=== PATIENT | female | born 2000 | race Caucasian/White ===

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

== ENCOUNTER 2023-03-17 14:27 | Emergency (ER) | payer OTHER ==
[~2023-03-17] VITALS: Ht 157.5 cm; Wt 61.4 kg
[2023-03-17 15:37] LABS: BASO # 0.1 10^3/uL (0.0-0.2); BASO % 0.6 % (0.0-1.0); EOS # 0.1 10^3/uL (0.0-0.5); EOS % 0.9 % (0.0-3.0); HEMOGLOBIN 12.6 g/dl (12.0-15.5); LYMPH # 1.5 10^3/uL (1.5-5.0); LYMPH % 18.4 % (24.0-44.0); MEAN CORPUSCULAR HEMOGLOBIN 29.7 pg (27.0-33.0); MEAN CORPUSCULAR HGB CONC 33.2 g/dl (32.0-36.5); MEAN CORPUSCULAR VOLUME 89.6 fl (80.0-96.0); MONO # 0.7 10^3/uL (0.0-0.8); MONO % 8.8 % (2.0-8.0); NEUTROPHILS # 5.7 10^3/uL (1.5-8.5); NEUTROPHILS % 70.9 % (36.0-66.0); PLATELET COUNT, AUTOMATED 190 10^3/uL (150-450); RED BLOOD COUNT 4.24 10^6/uL (4.00-5.40); WHITE BLOOD COUNT 8.1 10^3/uL (4.0-10.0)
[2023-03-17 16:05] LABS: ALBUMIN 3.7 G/DL (3.2-5.2); ALKALINE PHOSPHATASE 86 U/L (46-116); ALT/SGPT 12 U/L (7.0-40); AST/SGOT 15 U/L (<34); BILIRUBIN,TOTAL 0.2 MG/DL (0.3-1.2); BLOOD UREA NITROGEN 8 MG/DL (9-23); CALCIUM LEVEL 8.8 MG/DL (8.5-10.1); CARBON DIOXIDE LEVEL 25 MMOL/L (20-31); CHLORIDE LEVEL 109 MMOL/L (98-107); CK-MB VALUE MASS < 1.0 NG/ML (<3.6); CPK CREATINE PHOSPHOKINASE 71 U/L (34-145); CREATININE FOR GFR 0.65 MG/DL (0.55-1.30); GLUCOSE, FASTING 120 MG/DL (60-100); MAGNESIUM LEVEL 1.8 MG/DL (1.8-2.4); POTASSIUM SERUM 4.1 MMOL/L (3.5-5.1); SODIUM LEVEL 141 MMOL/L (136-145); TOTAL PROTEIN 7.1 G/DL (5.7-8.2)
[2023-03-17 16:07] LABS: THYROID STIMULATING HORMONE 1.292 uIU/ML (0.48-4.17)
[2023-03-17 16:10] LABS: HCG, SERUM QUALITATIVE NEGATIVE (NEGATIVE)
[2023-03-17] MEDS ORDERED: HYDR-3363 PO (16:49)
[2023-03-17 16:55] VITALS: BP 95/59
== END 2023-03-17 17:03 | disposition home or self-care (01) ==
LOC: M ED 14:27 → EDBD 14:27 → M ED 17:03
DX: F41.1 Generalized anxiety disorder (principal); I25.2 Old myocardial infarction; F43.10 Post-traumatic stress disorder, unspecified; Z79.811 Long term (current) use of aromatase inhibitors; Z88.5 Allergy status to narcotic agent

== ENCOUNTER 2023-06-26 22:43 | Emergency (ER) | payer OTHER ==
[~2023-06-26 22:43] MED LIST: EEG; HYDR-3363 PO; KEPP1TAB PO; LEXA1TAB PO
[2023-06-26 22:58] VITALS: BP 102/66; TEMP 99; O2SAT 98
== END 2023-06-26 23:54 | disposition left against medical advice (07) ==
LOC: M ED 22:43 → EDBD 22:43 → M ED 23:54
DX: Z53.21 Procedure and treatment not carried out due to patient leaving prior to being seen by health care provider (principal)

== ENCOUNTER 2023-07-13 17:10 | Emergency (ER) | payer OTHER ==
[~2023-07-13] VITALS: Ht 160 cm; Wt 54.5 kg
[2023-07-13 17:11] VITALS: BP 121/77; TEMP 98.2; O2SAT 98
[2023-07-13] MEDS ORDERED: LORA-674 (17:19)
== END 2023-07-13 18:32 | disposition left against medical advice (07) ==
LOC: M ED 17:10
DX: Z53.21 Procedure and treatment not carried out due to patient leaving prior to being seen by health care provider (principal)

== ENCOUNTER 2023-07-24 14:17 | Emergency (ER) | payer OTHER ==
[~2023-07-24] VITALS: Ht 160 cm; Wt 56.8 kg
[~2023-07-24 14:17] MED LIST changes: +LORA-1041
[2023-07-24 14:18] VITALS: BP 108/77; TEMP 97.9; O2SAT 98
[2023-07-24] MEDS ORDERED: KETOROLAC 60MG 2ML VIAL IM ONE (19:05)
== END 2023-07-24 19:27 | disposition home or self-care (01) ==
LOC: M ED 14:17
DX: S99.912A Unspecified injury of left ankle, initial encounter (principal); S99.922A Unspecified injury of left foot, initial encounter; G40.909 Epilepsy, unspecified, not intractable, without status epilepticus; F41.9 Anxiety disorder, unspecified; W54.1XXA Struck by dog, initial encounter; Y92.410 Unspecified street and highway as the place of occurrence of the external cause; Z79.83 Long term (current) use of bisphosphonates; Z79.811 Long term (current) use of aromatase inhibitors; Z79.899 Other long term (current) drug therapy
CPT/HCPCS: 73590; 73610; 73630; 96372; 99283; J1885

== ENCOUNTER → 2023-10-25 | Outpatient (REF) | payer OTHER ==
[~2023-10-25] MED LIST changes: +KEPP1TAB2 PO
[2023-10-25 15:13] LABS: CHLAMYDIA DNA AMPLIFICATION NEGATIVE (NEGATIVE); GC DNA AMPLIFICATION NEGATIVE (NEGATIVE)
== END ==
LOC: M LAB REF 12:23
PROVIDERS: ATTEND Physician Assistant Medical
DX: Z20.2 Contact with and (suspected) exposure to infections with a predominantly sexual mode of transmission (principal)

== ENCOUNTER 2023-12-06 23:19 | Emergency (ER) | payer OTHER ==
[~2023-12-06] VITALS: Ht 160 cm; Wt 70.5 kg
[2023-12-06 23:35] VITALS: BP 132/84; TEMP 97.7; O2SAT 99
== END 2023-12-07 00:28 | disposition left against medical advice (07) ==
LOC: M ED 23:19 → EDBD 23:19 → M ED 12-07 00:28
DX: Z53.21 Procedure and treatment not carried out due to patient leaving prior to being seen by health care provider (principal)

== ENCOUNTER → 2024-02-02 | Outpatient (REF) | payer OTHER | LOC: M LAB REF 18:26 | PROVIDERS: ATTEND Physician Assistant Medical | DX: B34.9 Viral infection, unspecified (principal) ==

== ENCOUNTER 2024-02-20 22:28 | Emergency (ER) | payer OTHER ==
[~2024-02-20] VITALS: Ht 170.2 cm; Wt 63.6 kg
[~2024-02-20 22:28] MED LIST changes: -LORA-1041; +LORA-1041 PO
[2024-02-20 23:15] LABS: HEMATOCRIT 40.6 % (36.0-47.0); HEMOGLOBIN 13.1 g/dl (12.0-15.5); MEAN CORPUSCULAR HEMOGLOBIN 26.8 pg (27.0-33.0); MEAN CORPUSCULAR HGB CONC 32.3 g/dl (32.0-36.5); PLATELET COUNT, AUTOMATED 244 10^3/uL (150-450); RED BLOOD COUNT 4.89 10^6/uL (4.00-5.40); WHITE BLOOD COUNT 11.6 10^3/uL (4.0-10.0)
[2024-02-20 23:35] LABS: AMPHETAMINES LEVEL URINE NEGATIVE (NEGATIVE); BARBITURATES URINE NEGATIVE (NEGATIVE); BENZODIAZEPINES URINE NEGATIVE (NEGATIVE); CANNABINOIDS URINE NEGATIVE (NEGATIVE); COCAINE METABOLITE URINE NEGATIVE (NEGATIVE); METHADONE URINE NEGATIVE (NEGATIVE); OPIATES URINE NEGATIVE (NEGATIVE); PHENCYCLIDINE URINE NEGATIVE (NEGATIVE)
[2024-02-20 23:38] LABS: ETHYL ALCOHOL (ETHANOL) 0.008 % (0.000-0.010)
[2024-02-20 23:39] LABS: ALBUMIN 4.2 G/DL (3.2-5.2); ALKALINE PHOSPHATASE 141 U/L (46-116); ALT/SGPT 17 U/L (7.0-40); AST/SGOT 12 U/L (<34); BILIRUBIN,DIRECT 0.2 MG/DL (<0.4); BILIRUBIN,TOTAL 0.4 MG/DL (0.3-1.2); SALICYLATE LEVEL < 3.0 MG/DL (<30); TOTAL PROTEIN 7.7 G/DL (5.7-8.2)
[2024-02-20 23:41] LABS: FREE T4 1.02 NG/DL (0.89-1.76); THYROID STIMULATING HORMONE 4.387 uIU/ML (0.55-4.78)
[2024-02-20 23:42] LABS: HCG, SERUM QUALITATIVE NEGATIVE (NEGATIVE)
[2024-02-20 23:43] LABS: CPK CREATINE PHOSPHOKINASE 57 U/L (34-145)
[2024-02-21 00:07] LABS: BLOOD UREA NITROGEN 10 MG/DL (9-23); CALCIUM LEVEL 9.4 MG/DL (8.5-10.1); CARBON DIOXIDE LEVEL 23 MMOL/L (20-31); CHLORIDE LEVEL 106 MMOL/L (98-107); CREATININE FOR GFR 0.62 MG/DL (0.55-1.30); GLOMERULAR FILTRATION RATE > 60.0 (>60); GLUCOSE, FASTING 86 MG/DL (60-100); SODIUM LEVEL 141 MMOL/L (136-145)
[2024-02-21] MEDS ORDERED: MED REC IN PROGRESS XX SCH (07:40)
[2024-02-21] MEDS ORDERED: MEDR150I13 INJ (09:32)
[2024-02-21] MEDS ORDERED: OMEP-173 PO (09:32)
[2024-02-21] MEDS ORDERED: ALBU8.5H INH (09:32)
[2024-02-21] MEDS ORDERED: PRAZ1CAP PO (09:32)
[2024-02-21] MEDS ORDERED: HOME MED LIST COMPLETE! XX SCH (09:35)
[2024-02-21] MEDS: ESCITALOPRAM OXALATE 5MG TABLET (LEXAPRO) PO SCH (11:23)
[2024-02-21] MEDS: OMEPRAZOLE 20MG CAP PO SCH (11:23)
[2024-02-21 12:09] VITALS: BP 110/67; TEMP 98; O2SAT 96
[2024-02-21] MEDS ORDERED: PRAZOSIN 1 MG CAP PO SCH (21:00)
== END 2024-02-21 12:14 | disposition home or self-care (01) ==
LOC: M ED 22:28
DX: F60.0 Paranoid personality disorder (principal); R44.1 Visual hallucinations; F43.10 Post-traumatic stress disorder, unspecified; J45.909 Unspecified asthma, uncomplicated; G40.909 Epilepsy, unspecified, not intractable, without status epilepticus; Z79.52 Long term (current) use of systemic steroids; Z79.83 Long term (current) use of bisphosphonates; Z79.899 Other long term (current) drug therapy

== ENCOUNTER 2024-07-13 01:09 | Emergency (ER) | payer OTHER ==
[~2024-07-13] VITALS: Ht 167.6 cm; Wt 63.6 kg
[~2024-07-13 01:09] MED LIST changes: +ALBU8.5H INH; +MEDR150I13 INJ; +OMEP-173 PO; +PRAZ1CAP PO
[2024-07-13 01:20] VITALS: TEMP 96.9
[2024-07-13] MEDS ORDERED: LORazepam 2 MG/ML 1ML VIAL IV PRN (01:20)
[2024-07-13 01:47] LABS: IONIZED CALCIUM 4.5 MG/DL (4.5-5.3); VENOUS HCO3 24.8 MMOL/L (23.0-27.0); VENOUS PARTIAL PRESSURE CO2 45.5 mmHg (38.0-50.0); VENOUS PARTIAL PRESSURE O2 51.6 mmHg (30.0-50.0); VENOUS PH 7.354 UNITS (7.330-7.430); VENOUS STANDARD HCO3 23.4 MMOL/L; VENOUS TOTAL CO2 26.2 MMOL/L (24.0-28.0)
[2024-07-13 02:11] LABS: BASO # 0.1 10^3/uL (0.0-0.2); BASO % 0.4 % (0.0-1.0); EOS # 0.2 10^3/uL (0.0-0.5); EOS % 1.5 % (0.0-3.0); HEMATOCRIT 35.7 % (36.0-47.0); HEMOGLOBIN 11.3 g/dl (12.0-15.5); LYMPH # 2.6 10^3/uL (1.5-5.0); LYMPH % 23.2 % (24.0-44.0); MEAN CORPUSCULAR HEMOGLOBIN 25.8 pg (27.0-33.0); MEAN CORPUSCULAR HGB CONC 31.7 g/dl (32.0-36.5); MEAN CORPUSCULAR VOLUME 81.5 fl (80.0-96.0); MONO # 0.8 10^3/uL (0.0-0.8); MONO % 7.4 % (2.0-8.0); NEUTROPHILS # 7.7 10^3/uL (1.5-8.5); NEUTROPHILS % 67.1 % (36.0-66.0); PLATELET COUNT, AUTOMATED 229 10^3/uL (150-450); RED BLOOD COUNT 4.38 10^6/uL (4.00-5.40); WHITE BLOOD COUNT 11.4 10^3/uL (4.0-10.0)
[2024-07-13 02:14] LABS: ETHYL ALCOHOL (ETHANOL) < 0.003 % (0.000-0.010)
[2024-07-13 02:16] LABS: ALBUMIN 3.7 G/DL (3.2-5.2); ALKALINE PHOSPHATASE 147 U/L (46-116); ALT/SGPT 34 U/L (7.0-40); AST/SGOT 30 U/L (<34); BILIRUBIN,DIRECT < 0.1 MG/DL (<0.4); BILIRUBIN,TOTAL 0.3 MG/DL (0.3-1.2); BLOOD UREA NITROGEN 9 MG/DL (9-23); CALCIUM LEVEL 9.3 MG/DL (8.5-10.1); CARBON DIOXIDE LEVEL 26 MMOL/L (20-31); CHLORIDE LEVEL 106 MMOL/L (98-107); CREATININE FOR GFR 0.59 MG/DL (0.55-1.30); GLOMERULAR FILTRATION RATE > 60.0 (>60); GLUCOSE, FASTING 90 MG/DL (60-100); MAGNESIUM LEVEL 1.8 MG/DL (1.8-2.4); PHOSPHORUS LEVEL 3.9 MG/DL (2.5-4.9); POTASSIUM SERUM 4.2 MMOL/L (3.5-5.1); SODIUM LEVEL 137 MMOL/L (136-145); TOTAL PROTEIN 7.3 G/DL (5.7-8.2)
[2024-07-13 04:30] VITALS: BP 94/58; O2SAT 99
== END 2024-07-13 04:41 | disposition home or self-care (01) ==
LOC: M ED 01:09 → EDBD 01:09 → M ED 04:41
DX: F44.5 Conversion disorder with seizures or convulsions (principal); Z79.52 Long term (current) use of systemic steroids; Z79.899 Other long term (current) drug therapy

== ENCOUNTER → 2024-08-31 | Outpatient (REF) | payer OTHER | LOC: M LAB REF 19:37 | PROVIDERS: ATTEND Physician Assistant Medical | DX: R05.9 Cough, unspecified (principal) ==

== ENCOUNTER 2025-05-27 21:08 | Emergency (ER) | payer OTHER ==
[~2025-05-27] VITALS: Ht 160 cm; Wt 59.9 kg
[2025-05-27 23:20] VITALS: BP 109/67; TEMP 97; O2SAT 99
== END 2025-05-27 23:30 | disposition home or self-care (01) ==
LOC: EDBD 21:08 → M ED 21:08
DX: S80.01XA Contusion of right knee, initial encounter (principal); X50.0XXA Overexertion from strenuous movement or load, initial encounter; Y92.009 Unspecified place in unspecified non-institutional (private) residence as the place of occurrence of the external cause; Y93.89 Activity, other specified; Y99.9 Unspecified external cause status; Z79.899 Other long term (current) drug therapy